=== PATIENT | female | born 1970 | race Two or more races ===

== ENCOUNTER 2018-03-19 08:01 | Emergency (ER) | payer BC ==
--- NOTE | 2018-03-19 09:51 | RAD REPORT ---
EXAM DESCRIPTION: RAD - Chest Pa And Lat (2 Views) - 03/19/2018 9:01 am CLINICAL HISTORY: lumb below right breast Chest pain. COMPARISON: No comparisons FINDINGS: The lungs are clear. The heart is normal in size. No displaced fractures. IMPRESSION: No acute or concerning finding suspected.
--- NOTE | 2018-03-19 10:20 | RAD REPORT ---
EXAM DESCRIPTION: US - Extremity Nonvascular Limited - 03/19/2018 9:56 am CLINICAL HISTORY: swelling below right breast COMPARISON: No comparisons TECHNIQUE: Real-time sonographic evaluation of the area of interest was performed. FINDINGS: No sonographically detected abnormality is present in the region. If clinical concern persists, cross-sectional imaging may be of value. IMPRESSION: Negative study.
--- NOTE | 2018-03-19 10:39 | EDPHYS ---
Physician Documentation [facility] Name: Karen Warren Age: 47 yrs Sex: Female : 1970 Arrival Date: 03/19/2018 Time: 08:04 Bed 16 Private MD: Lashae Latif K ED Physician Nveille Cardenas HPI: 03/19 08:35 This 47 yrs old Female presents to ER via Ambulatory with complaints of Lump Under Rib cp Cage. 08:35 Patient presents to ED with concern for lump, swelling, or mass noticed Sunday under cp right breast. Denies pain to area. 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 - Social history:: Smoking status: Patient uses tobacco products, smokes one-half pack cigarettes per day. - Ebola Screening: : Patient denies exposure to infectious person Patient denies travel to an Ebola-affected area in the 21 days before illness onset. ROS: 08:40 Constitutional: Negative for body aches, chills, fever, poor PO intake. cp 08:40 Eyes: Negative for injury, pain, redness, and discharge. cp 08:40 ENT: Negative for drainage from ear(s), ear pain, sore throat, difficulty swallowing, difficulty handling secretions, hoarseness. 08:40 Neck: Negative for pain with movement, pain at rest, stiffness, swollen nodes, tenderness. 08:40 Cardiovascular: Positive for swelling/lump below right breast, Negative for chest pain. 08:40 Respiratory: Positive for cough, with no reported sputum, Negative for shortness of breath, wheezing. 08:40 Abdomen/GI: Negative for abdominal pain, nausea, vomiting, and diarrhea. 08:40 Back: Negative for pain at rest, pain with movement, radiated pain. 08:40 : Negative for urinary symptoms. 08:40 Skin: Negative for cellulitis, diaphoresis, rash. 08:40 Neuro: Negative for altered mental status, headache, syncope, near syncope, weakness. 08:40 All other systems are negative. Exam: 08:45 Constitutional: The patient appears in no acute distress, alert, awake, cp non-diaphoretic, non-toxic, well developed, well nourished. 08:45 Head/Face: Normocephalic, atraumatic. cp 08:45 Eyes: Periorbital structures: appear normal, Pupils: equal, round, and reactive to cp light and accomodation, Extraocular movements: intact throughout, Conjunctiva: normal, no exudate, no injection, Sclera: no appreciated abnormality, Lids and lashes: appear normal, bilaterally. 08:45 ENT: External ear(s): are unremarkable, Nose: is normal, Mouth: Lips: moist, Oral mucosa: pink and intact, moist, Posterior pharynx: is normal, airway is patent, no erythema, no exudate. 08:45 Neck: C-spine: vertebral tenderness, is not appreciated, crepitus, is not appreciated, ROM/movement: is normal, is supple, without pain, no range of motions limitations, no nuchal rigidity. 08:45 Chest/axilla: Inspection: normal, Palpation: crepitus, is not appreciated, tenderness, that is mild, of the lower area below right breast, mild swelling. 08:45 Cardiovascular: Rate: normal, Rhythm: regular, Edema: is not appreciated, JVD: is not cp appreciated. 08:45 Respiratory: the patient does not display signs of respiratory distress, Respirations: normal, no use of accessory muscles, no retractions, no splinting, no tachypnea, Breath sounds: are clear throughout, no decreased breath sounds, no stridor, no wheezing. 08:45 Abdomen/GI: Inspection: abdomen appears normal, Bowel sounds: active, all quadrants, Palpation: abdomen is soft and non-tender, in all quadrants, rebound tenderness, is not appreciated. 08:45 Back: pain, is absent, ROM is normal. 08:45 Skin: cellulitis, is not appreciated, no rash present. 08:45 Neuro: Orientation: to person, place \T\ time. Mentation: lucid, able to follow commands, Cerebellar function: is grossly normal, Motor: moves all fours, strength is normal, Sensation: no obvious gross deficits. Vital Signs: 08:25 BP 140 / 88; Pulse 75; Resp 14; Temp 97.4(TE); Pulse Ox 100% on R/A; Weight 63.5 kg; ss Height 5 ft. 3 in. (160.02 cm); Pain 0/10; 09:20 BP 114 / 80; Pulse 78; Resp 17; Pulse Ox 100% ; rb1 10:19 BP 106 / 63; Pulse 80; Resp 16; Pulse Ox 99% on R/A; Pain 0/10; rb1 08:25 Body Mass Index 24.80 (63.50 kg, 160.02 cm) ss MDM: 08:19 Patient medically screened. cp 09:00 Differential diagnosis: hernia, cellulitis, mass. cp 10:36 Data reviewed: vital signs, nurses notes, radiologic studies, plain films, ultrasound. cp 10:36 Test interpretation: by ED physician or midlevel provider: plain radiologic studies. cp Counseling: I had a detailed discussion with the patient and/or guardian regarding: the historical points, exam findings, and any diagnostic results supporting the discharge/admit diagnosis, radiology results, the need for outpatient follow up, a family practitioner, to return to the emergency department if symptoms worsen or persist or if there are any questions or concerns that arise at home. 03/19 08:31 Order name: XRAY Chest Pa And Lat (2 Views); Complete Time: 10:27 cp 03/19 10:27 Interpretation: Report reviewed. 03/19 09:12 Order name: US Extrmty Nonvasular Limited; Complete Time: 10:27 cp 03/19 10:27 Interpretation: Report reviewed. cp Administered Medications: No medications were administered Disposition: 03/20 07:09 Co-signature as Attending Physician, Neville Cardenas MD. rn Disposition: 03/19/18 10:38 Discharged to Home. Impression: Localized swelling, mass and lump, unspecified - Right Lower Chest. - Condition is Stable. - Medication Reconciliation Form, Thank You Letter, Antibiotic Education, Prescription Opioid Use form. - Follow up: Lashae Latif MD; When: 2 - 3 days; Reason: Recheck today's complaints. - Problem is new. - Symptoms are unchanged. Signatures: Dispatcher [employer] EDNeville Kwan MD MD rn Smirch, Shelby, RN RN ss Page, Corey, PA PA cp Louise Wright, RN RN rb1 Corrections: (The following items were deleted from the chart) 03/19 10:54 10:38 03/19/2018 10:38 Discharged to Home. Impression: Localized swelling, mass and rb1 lump, unspecified - Right Lower Chest. Condition is Stable. Forms are Medication Reconciliation Form, Thank You Letter, Antibiotic Education, Prescription Opioid Use. Follow up: Lashae Latif; When: 2 - 3 days; Reason: Recheck today's complaints. Problem is new. Symptoms are unchanged. cp
--- NOTE | 2018-03-19 10:39 | ER ---
Nurse's Notes [facility] Name: Karen Warren Age: 47 yrs Sex: Female : 1970 Arrival Date: 03/19/2018 Time: 08:04 Bed 16 Private MD: Lashae Latif K Diagnosis: Localized swelling, mass and lump, unspecified-Right Lower Chest Presentation: 03/19 08:24 Presenting complaint: Patient states: "I noticed a lump under my R rib cage and it ss doesn't hurt or anything. I just want to know what it is.". Transition of care: patient was not received from another setting of care. Onset of symptoms is unknown. Risk Assessment: Do you want to hurt yourself or someone else? Patient reports no desire to harm self or others. Initial Sepsis Screen: Does the patient meet any 2 criteria? No. Patient's initial sepsis screen is negative. Does the patient have a suspected source of infection? No. Patient's initial sepsis screen is negative. Care prior to arrival: None. 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 - Social history:: Smoking status: Patient uses tobacco products, smokes one-half pack cigarettes per day. - Ebola Screening: : Patient denies exposure to infectious person Patient denies travel to an Ebola-affected area in the 21 days before illness onset. Screenin:20 Abuse screen: Denies threats or abuse. Nutritional screening: No deficits noted. rb1 Tuberculosis screening: No symptoms or risk factors identified. Fall Risk None identified. Assessment: 08:20 General: Appears in no apparent distress. comfortable, Behavior is calm, cooperative. rb1 Pain: Complains of pain in front right ribs Pain currently is 2 out of 10 on a pain scale. Pain began 1 day ago. Neuro: Level of Consciousness is awake, alert, obeys commands, Oriented to person, place, time, situation. Cardiovascular: Capillary refill < 3 seconds is brisk in bilateral fingers. Respiratory: Airway is patent Respiratory effort is even, unlabored, Respiratory pattern is regular, symmetrical. GI: No signs and/or symptoms were reported involving the gastrointestinal system. : No signs and/or symptoms were reported regarding the genitourinary system. Derm: Skin is dry, Skin is normal, Skin temperature is warm. 09:20 Reassessment: Patient appears in no apparent distress at this time. No changes from rb1 previously documented assessment. 10:19 Reassessment: Patient appears in no apparent distress at this time. Patient and/or rb1 family updated on plan of care and expected duration. Pain level reassessed. Patient is alert, oriented x 3, equal unlabored respirations, skin warm/dry/pink. Patient denies pain at this time. Vital Signs: 08:25 BP 140 / 88; Pulse 75; Resp 14; Temp 97.4(TE); Pulse Ox 100% on R/A; Weight 63.5 kg; ss Height 5 ft. 3 in. (160.02 cm); Pain 0/10; 09:20 BP 114 / 80; Pulse 78; Resp 17; Pulse Ox 100% ; rb1 10:19 BP 106 / 63; Pulse 80; Resp 16; Pulse Ox 99% on R/A; Pain 0/10; rb1 08:25 Body Mass Index 24.80 (63.50 kg, 160.02 cm) ED Course: 08:04 Patient arrived in ED. sb2 08:05 Lashae Latif MD is Private Physician. sb2 08:19 Sandro Avelar PA is PHCP. cp 08:19 Neville Cardenas MD is Attending Physician. cp 08:20 Patient has correct armband on for positive identification. Placed in gown. Bed in low rb1 position. Call light in reach. Side rails up X 1. Pulse ox on. NIBP on. Warm blanket given. 08:24 Triage completed. ss 08:25 Arm band placed on right wrist. ss 08:46 Louise Wright, ANDRESSA is Primary Nurse. rb1 08:50 Patient moved to radiology via wheelchair. jb2 08:57 X-ray completed. Patient tolerated procedure well. Patient moved back from radiology. jb2 09:01 XRAY Chest Pa And Lat (2 Views) In Process Unspecified. EDMS 09:52 Ultrasound completed. Patient tolerated well. hr 09:56 US Extrmty Nonvasular Limited In Process Unspecified. EDMS 10:36 Lashae Latif MD is Referral Physician. cp 10:53 No provider procedures requiring assistance completed. Patient did not have IV access rb1 during this emergency room visit. Administered Medications: No medications were administered Outcome: 10:38 Discharge ordered by MD. cp 10:53 Discharged to home ambulatory. rb1 10:53 Condition: stable 10:53 Discharge instructions given to patient, Instructed on discharge instructions, follow up and referral plans. Demonstrated understanding of instructions, follow-up care, Prescriptions given X none 10:54 Patient left the ED. rb1 Signatures: Dispatcher [employer] EDMS Duke Roman jb2 Kinjal Murray Shelby, RN RN ss Sandro Avelar PA PA cp Louise Wright, RN RN rb1 Shy Buckley sb2
== END 2018-03-19 10:54 | disposition home or self-care (01) ==
LOC: ER 08:01
DX: R22.2 Localized swelling, mass and lump, trunk (principal); I10 Essential (primary) hypertension; F17.210 Nicotine dependence, cigarettes, uncomplicated
CPT/HCPCS: 71046; 76882; 99283